=== PATIENT | male | born 1965 | race Caucasian/White ===

== ENCOUNTER → 2021-03-13 | Outpatient (CLI) | payer BC | LOC: MHCPAIN 10:06 | DX: M47.816 Spondylosis without myelopathy or radiculopathy, lumbar region (principal); M96.1 Postlaminectomy syndrome, not elsewhere classified; M54.5 Low back pain; G89.29 Other chronic pain; M53.3 Sacrococcygeal disorders, not elsewhere classified | CPT/HCPCS: G0463 ==

== ENCOUNTER → 2021-03-21 | Outpatient (CLI) | payer BC | LOC: MHCPAIN 13:52 | DX: M47.817 Spondylosis without myelopathy or radiculopathy, lumbosacral region (principal); M54.16 Radiculopathy, lumbar region | CPT/HCPCS: J1100; Q9967 ==

== ENCOUNTER → 2021-04-02 | Outpatient (CLI) | payer BC | LOC: MHCPAIN 08:32 | DX: M47.816 Spondylosis without myelopathy or radiculopathy, lumbar region (principal); M96.1 Postlaminectomy syndrome, not elsewhere classified; M54.5 Low back pain; G89.29 Other chronic pain | CPT/HCPCS: G0463 ==

== ENCOUNTER → 2021-04-08 | Outpatient (CLI) | payer BC | LOC: MHCPAIN 11:48 | DX: M47.817 Spondylosis without myelopathy or radiculopathy, lumbosacral region (principal); M54.16 Radiculopathy, lumbar region | CPT/HCPCS: J1100; Q9967 ==

== ENCOUNTER → 2021-04-22 | Outpatient (CLI) | payer BC | LOC: MHCPAIN 10:05 | DX: M47.816 Spondylosis without myelopathy or radiculopathy, lumbar region (principal); M96.1 Postlaminectomy syndrome, not elsewhere classified; M54.16 Radiculopathy, lumbar region; G89.29 Other chronic pain | CPT/HCPCS: G0463 ==

== ENCOUNTER → 2021-05-06 | Outpatient (CLI) | payer BC | LOC: MHCPAIN 11:52 | DX: M47.817 Spondylosis without myelopathy or radiculopathy, lumbosacral region (principal); M54.16 Radiculopathy, lumbar region | CPT/HCPCS: J1100; Q9967 ==

== ENCOUNTER 2021-07-12 15:45 | Outpatient (RCR) | payer BC | END 2021-07-12 16:00 | disposition home or self-care (01) | LOC: WSPT 15:45 | DX: M48.062 Spinal stenosis, lumbar region with neurogenic claudication (principal); M54.16 Radiculopathy, lumbar region ==

== ENCOUNTER → 2021-12-31 | Outpatient (CLI) | payer BC | LOC: COL.RAD 10:11 | DX: M48.061 Spinal stenosis, lumbar region without neurogenic claudication (principal); M47.816 Spondylosis without myelopathy or radiculopathy, lumbar region; Z98.890 Other specified postprocedural states | CPT/HCPCS: A9575 ==

== ENCOUNTER 2023-01-07 08:58 | Outpatient (RCR) | payer BC | END 2023-01-13 | disposition home or self-care (01) | LOC: WSST | DX: R13.10 Dysphagia, unspecified (principal) ==

== ENCOUNTER → 2023-12-14 | Outpatient (CLI) | payer BC | LOC: MHCPAIN 09:57 | DX: M54.50 Low back pain, unspecified (principal); M51.36 Other intervertebral disc degeneration, lumbar region; M47.816 Spondylosis without myelopathy or radiculopathy, lumbar region; Z98.890 Other specified postprocedural states; M48.02 Spinal stenosis, cervical region; M48.10 Ankylosing hyperostosis [Forestier], site unspecified | CPT/HCPCS: G0463 ==

== ENCOUNTER → 2024-01-26 | Outpatient (CLI) | payer BC | LOC: MHCPAIN 11:24 | DX: M54.50 Low back pain, unspecified (principal); M51.36 Other intervertebral disc degeneration, lumbar region; M75.42 Impingement syndrome of left shoulder; M47.816 Spondylosis without myelopathy or radiculopathy, lumbar region | CPT/HCPCS: G0463 ==

== ENCOUNTER → 2024-03-03 | Outpatient (CLI) | payer BC ==
[~2024-03-03] MED LIST: Ethyl Chloride Topical 200 (3 to 7 second) Sprays/103 ML BOTTLE TP ONE; Lidocaine PF 1% (10 MG/ML) 5 ML VIAL ONE; Triamcinolone 40 MG/ML 1 ML VIAL ONE
== END ==
LOC: MHCPAIN 10:15
DX: M75.42 Impingement syndrome of left shoulder (principal)
CPT/HCPCS: J3301

== ENCOUNTER → 2024-05-02 | Outpatient (CLI) | payer BC | LOC: MHCPAIN 14:58 | DX: M54.50 Low back pain, unspecified (principal); M51.36 Other intervertebral disc degeneration, lumbar region; M75.42 Impingement syndrome of left shoulder; Z98.890 Other specified postprocedural states | CPT/HCPCS: G0463 ==

== ENCOUNTER → 2024-07-25 | Outpatient (CLI) | payer BC | LOC: MHCPAIN 09:50 | DX: M54.50 Low back pain, unspecified (principal); M14.88 Arthropathies in other specified diseases classified elsewhere, vertebrae; M48.02 Spinal stenosis, cervical region; M18.9 Osteoarthritis of first carpometacarpal joint, unspecified; Z98.890 Other specified postprocedural states | CPT/HCPCS: G0463 ==